=== PATIENT | female | born 1970 | race Caucasian/White ===

== ENCOUNTER 2018-07-19 09:15 | Emergency (ER) | payer SELFPAY ==
[~2018-07-19] VITALS: Ht 165.1 cm; Wt 63.5 kg
--- NOTE | 2018-07-19 09:39 | PHYS DOC ---
Past History Past Surgical History: Appendectomy, Hysterectomy, Tubal ligation Smoking: Cigarettes, Less than 1pk/day Alcohol Use: Occasionally Drug Use: None Adult General Chief Complaint Chief Complaint: FEVER HPI HPI Patient is a 48-year-old female who presents with cough, fever, body aches, headache, since 2 days ago. Not worst headache of life. No neck stiffness, no nausea or vomiting, and symptoms resolved with ibuprofen. No nausea or vomiting. Symptoms are moderate and a generalized achiness. No sick contacts. Cough is nonproductive. Decreased oral intake.[] Review of Systems Review of Systems Constitutional: See history of present illness[] Eyes: Denies change in visual acuity, redness, or eye pain [] HENT: Denies nasal congestion or sore throat [] Respiratory: Denies shortness of breath, see history of present illness [] Cardiovascular: No chest pain or palpitations[] GI: Denies abdominal pain, nausea, vomiting, bloody stools or diarrhea [] : Denies dysuria or hematuria [] Musculoskeletal: Denies back pain or joint pain [] Integument: Denies rash or skin lesions [] Neurologic: Denies focal weakness or sensory changes [] Endocrine: Denies polyuria or polydipsia [] All other systems were reviewed and found to be within normal limits, except as documented in this note. Physical Exam Physical Exam Constitutional: Well developed, well nourished, no acute distress, non-toxic appearance. [] HENT: Normocephalic, atraumatic, bilateral external ears normal, oropharynx moist, no oral exudates, nose normal. [] Eyes: PERRLA, EOMI, conjunctiva normal, no discharge. [] Neck: Normal range of motion, no tenderness, supple, no stridor. [] Cardiovascular:Heart rate regular rhythm, no murmur [] Lungs & Thorax: Bilateral breath sounds clear to auscultation [] Abdomen: Bowel sounds normal, soft, no tenderness, no masses, no pulsatile masses. [] Skin: Warm, dry, no erythema, no rash. [] Back: No tenderness, no CVA tenderness. [] Extremities: No tenderness, no cyanosis, no clubbing, ROM intact, no edema. [] Neurologic: Alert and oriented X 3, normal motor function, normal sensory function, no focal deficits noted. [] Psychologic: Affect normal, judgement normal, mood normal. [] EKG EKG [] Radiology/Procedures Radiology/Procedures Chest, PA and Lateral: Technique: PA and lateral views of the chest were obtained. History: Fever , dry cough. Comparison: None. Findings: The heart and pulmonary vasculature appear within normal limits. The lungs are clear. The pleural margins are clear. Impression: No acute chest process is seen. [] Course & Med Decision Making Course & Med Decision Making Pertinent Labs and Imaging studies reviewed. (See chart for details) ED course: Patient arrived, was placed in bed, and tolerated exam well. She was transported to and from [facility] without any complications. IV access was established and she was given a liter of IV fluids which improved her symptoms. After the return of the laboratory and imaging studies, these were discussed with the patient who voiced understanding. All questions were answered. Medical decision making: At the time of this dictation thyroid test is still pending however she does not appear to have a significant hypothyroid state/ myxedema coma. She is positive for the flu. No evidence of urinary tract infection, pneumonia, and otherwise nontoxic patient. Will start her on Tamiflu since her symptoms are approximately 48 hours old.[] Dragon Disclaimer Dragon Disclaimer This electronic medical record was generated, in whole or in part, using a voice recognition dictation system. Departure Departure: Impression: Primary Impression: Influenza A Disposition: 01 HOME, SELF-CARE Condition: IMPROVED Referrals: PCP,PRANAV (PCP) Patient Instructions: Influenza, Adult Additional Instructions: Follow-up with your regular doctor in 2 days. If you do not have regular doctor list of local clinics will be provided for you. Drink plenty of fluids. Return to the ER if unable to tolerate liquids or any other concerns. Scripts Acetaminophen (TYLENOL) 325 Mg Tablet 1-2 TAB PO QID for pain or fever, #60 TAB 0 Refills Prov: DIOGO LOPEZ DO 07/19/18 Ondansetron Hcl (ZOFRAN) 4 Mg Tablet 1 TAB PO Q6HRS for nausea or vomiting, #20 TAB Prov: DIOGO LOPEZ DO 07/19/18 Oseltamivir Phosphate (TAMIFLU) 75 Mg Capsule 1 CAP PO BID for Influenza A, #10 CAP Prov: DIOGO LOPEZ DO 07/19/18 DIOGO LOPEZ DO Jul 19, 2018 09:39
[2018-07-19] MEDS ORDERED: IV NORMAL SALINE 1,000ML 1,000 ML IV ONE (09:45)
[2018-07-19 09:58] LABS: BASO % 1 % (0-3); EOS % 0 % (0-3); HEMATOCRIT 39.7 % (36.0-47.0); HEMOGLOBIN 13.6 g/dL (12.0-15.5); LYMPH # 0.7 x10^3/uL (1.0-4.8); LYMPH % 23 % (24-48); MEAN CORPUSCULAR HEMOGLOBIN 32 pg (25-35); MEAN CORPUSCULAR HGB CONC 34 g/dL (31-37); MEAN CORPUSCULAR VOLUME 95 fL (79-100); MONO # 0.5 x10^3/uL (0.0-1.1); MONO % 15 % (0-9); NEUT # 1.9 x10^3uL (1.8-7.7); NEUT % 61 % (31-73); PLATELET COUNT 145 x10^3/uL (140-400); RED BLOOD COUNT 4.19 x10^6/uL (3.50-5.40); RED CELL DISTRIBUTION WIDTH 13.4 % (11.5-14.5)
[2018-07-19 10:06] LABS: BACTERIA,URINE FEW /HPF (0-FEW); BILIRUBIN,URINE NEG (NEG); CLARITY,URINE HAZY; COLOR,URINE YELLOW; GLUCOSE,URINE NEG (NEG); NITRITE,URINE NEG (NEG); SQUAMOUS EPITHELIAL CELL,UR MOD /LPF; UROBILINOGEN,URINE 0.2 mg/dL (0.2 mg/dL)
--- NOTE | 2018-07-19 10:09 | RAD ---
Chest, PA and Lateral: Technique: PA and lateral views of the chest were obtained. History: Fever , dry cough. Comparison: None. Findings: The heart and pulmonary vasculature appear within normal limits. The lungs are clear. The pleural margins are clear. Impression: No acute chest process is seen. Electronically signed by: Radu Hennessy MD (07/19/2018 10:06 AM) [id number]
[2018-07-19 10:13] LABS: ALBUMIN 3.5 g/dL (3.4-5.0); ALBUMIN/GLOBULIN RATIO 1.1 (1.0-1.7); CALCIUM 8.1 mg/dL (8.5-10.1); CREATININE 0.9 mg/dL (0.6-1.0); GFR 66.5; POTASSIUM 3.5 mmol/L (3.5-5.1); TOTAL BILIRUBIN 0.2 mg/dL (0.2-1.0); TOTAL PROTEIN 6.7 g/dL (6.4-8.2)
[2018-07-19 10:16] LABS: INFLUENZA A PATIENT POSITIVE (NEGATIVE); INFLUENZA B PATIENT NEGATIVE (NEGATIVE)
[2018-07-19] MEDS ORDERED: ACETAMINOPHEN 500 MG TABLET PO ONE ×2 (10:29→10:30)
[2018-07-19] MEDS ORDERED: ACET325T9 PO (10:31)
[2018-07-19] MEDS ORDERED: ONDA4TAB7 PO (10:31)
[2018-07-19] MEDS ORDERED: OSEL75CA PO (10:31)
[2018-07-19 10:48] VITALS: BP 110/76
== END 2018-07-19 10:50 | disposition home or self-care (01) ==
LOC: ER 09:15
DX: J10.1 Influenza due to other identified influenza virus with other respiratory manifestations (principal); F17.210 Nicotine dependence, cigarettes, uncomplicated
CPT/HCPCS: 36415; 71046; 80053; 81001; 83690; 83735; 84443; 85025; 87804; 99284-25; J7030

== ENCOUNTER 2018-10-07 18:44 | Emergency (ER) | payer SELFPAY ==
[~2018-10-07] VITALS: Ht 157.5 cm; Wt 47.6 kg
[~2018-10-07 18:44] MED LIST: ACET325T9 PO; ONDA4TAB7 PO; OSEL75CA PO
[2018-10-07 19:15] VITALS: BP 132/82
[2018-10-07] MEDS ORDERED: PRED-220 PO (20:11)
[2018-10-07] MEDS ORDERED: HYDR25TA PO (20:11)
--- NOTE | 2018-10-07 20:12 | PHYS DOC ---
Past History Past Medical History: Other Past Surgical History: Appendectomy, Hysterectomy, Tonsillectomy, Other Smoking: Cigarettes, Less than 1pk/day Alcohol Use: None Drug Use: None Adult General Chief Complaint Chief Complaint: ALLERGIC REACTION HPI HPI Patient is a 48 year old female who presents with complaint of rash. States that she is noted the rash over the past 2-3 days. States that it started on her right forearm. Since it has spread to her left forearm in her bilateral lower extremities. Is not sure what she came in contact with but does admit that one to 2 days prior she was pulling weeds out from under her deck. States that the rash is been very itchy. Has noted several pustules that of, through the rash. States that the rash appears linear in many places. Denies any throat swelling, shortness of breath, or fever. Review of Systems Review of Systems Constitutional: Denies fever or chills [] Eyes: Denies change in visual acuity, redness, or eye pain [] HENT: Denies nasal congestion or sore throat [] Respiratory: Denies cough or shortness of breath [] Cardiovascular: Denies chest pain or edema[] GI: Denies abdominal pain, nausea, vomiting, bloody stools or diarrhea [] : Denies dysuria or hematuria [] Musculoskeletal: Denies back pain or joint pain [] Integument: Rash[] Neurologic: Denies headache, focal weakness or sensory changes [] All other systems were reviewed and found to be within normal limits, except as documented in this note. Allergies Allergies Allergies Coded Allergies Type Severity Reaction Last Updated Verified No Known Drug Allergies 07/19/18 No Physical Exam Physical Exam Constitutional: Well developed, well nourished, no acute distress, non-toxic appearance. [] HENT: Normocephalic, atraumatic, bilateral external ears normal, oropharynx moist, no oral exudates, nose normal. [] Eyes: PERRLA, EOMI, conjunctiva normal, no discharge. [] Neck: Normal range of motion, no tenderness, supple, no stridor. [] Cardiovascular:Heart rate regular rhythm, no murmur [] Lungs & Thorax: Bilateral breath sounds clear to auscultation [] Abdomen: Bowel sounds normal, soft, no tenderness, no masses, no pulsatile masses. [] Skin: Warm, dry, pustular erythematous rash arranged in linear patterns over bilateral forearms and bilateral lower extremities, no rash visualized on trunk, neck, or face. [] Back: No tenderness, no CVA tenderness. [] Extremities: No tenderness, no cyanosis, no clubbing, ROM intact, no edema. [] Neurologic: Alert and oriented X 3, normal motor function, normal sensory function, no focal deficits noted. [] Current Patient Data Vital Signs Vital Signs Date Time Temp Pulse Resp B/P (MAP) Pulse Ox O2 Delivery O2 Flow Rate FiO2 10/07/18 19:15 98.7 89 18 97 Room Air Lab Results Not performed EKG EKG Not performed[] Radiology/Procedures Radiology/Procedures Not performed[] Course & Med Decision Making Course & Med Decision Making Pertinent Labs and Imaging studies reviewed. (See chart for details) Symptoms appear consistent with contact dermatitis. Given loading dose of oral prednisone in the emergency department. We'll continue on prednisone taper. P rescribe Atarax as needed for itching and advised to discontinue Benadryl this time. Recommended follow-up with primary doctor in 1 week if symptoms are not improving and return to emergency department for any worsening symptoms. Patient was understanding and in agreement with treatment plan. Dragon Disclaimer Dragon Disclaimer This electronic medical record was generated, in whole or in part, using a voice recognition dictation system. Departure Departure: Impression: Primary Impression: Contact dermatitis Disposition: 01 HOME, SELF-CARE Condition: STABLE Referrals: PCP,PRANAV (PCP) Patient Instructions: Contact Dermatitis Additional Instructions: Follow-up with your primary doctor in 1 week for reevaluation if symptoms are not improving. Return to the emergency department for any worsening symptoms. Scripts Hydroxyzine Hcl (HYDROXYZINE HCL) 25 Mg Tablet 1 TAB PO QID PRN for ANXIETY / AGITATION, #30 TAB Prov: CHEVY NOONAN MD 10/07/18 Prednisone (PREDNISONE) 10 Mg Tablet 10 MG PO UD for PREDNISONE TAPER, #39 TAB 0 Refills Take 3 tablets by mouth twice a day for 3 days, then take 2 tablets by mouth twice a day for 3 days, then take 1 tablet by mouth twice a day for 3 days, then take 1 tablet by mouth daily x 3 days, then stop. Prov: CHEVY NOONAN MD 10/07/18 Problem Qualifiers Primary Impression: Contact dermatitis Contact dermatitis type: unspecified Contact dermatitis trigger: unspecified trigger Qualified Codes: L25.9 - Unspecified contact dermatitis, unspecified cause CHEVY NOONAN MD Oct 07, 2018 20:12
[2018-10-07] MEDS ORDERED: predniSONE 10 MG TABLET PO ONE (20:15)
[2018-10-07] MEDS ORDERED: predniSONE 10 MG TABLET ONE (20:17)
== END 2018-10-07 20:24 | disposition home or self-care (01) ==
LOC: ER 18:44
DX: L25.9 Unspecified contact dermatitis, unspecified cause (principal); F17.210 Nicotine dependence, cigarettes, uncomplicated
CPT/HCPCS: 99283; J7512

== ENCOUNTER 2018-10-11 17:06 | Emergency (ER) | payer SELFPAY ==
[~2018-10-11] VITALS: Ht 157.5 cm; Wt 51.8 kg
[~2018-10-11 17:06] MED LIST changes: +DEXAMETHASONE SOD PHOS 10 MG/ML VIAL IM ONE; +HYDR25TA PO; +PRED-220 PO
[2018-10-11] MEDS ORDERED: DEXAMETHASONE SOD PHOS 10 MG/ML VIAL ONE (18:45)
--- NOTE | 2018-10-11 18:56 | ED.ADGEN ---
Past History Past Medical History: Hyperthyroid, Other Past Surgical History: Appendectomy, Hysterectomy, Tonsillectomy, Other Smoking: Cigarettes, Less than 1pk/day Alcohol Use: None Drug Use: None Adult General Chief Complaint Chief Complaint Poison sadiq exposure [facility] HPI Patient is a 48-year-old female evaluated and treated in the emergency department 4 days ago for plant dermatitis after poison IV exposure while mowing her lawn. Patient was prescribed Medrol Dosepak and hydroxyzine which she has taken. However, patient does report increasing anxiety while taking prednisone and T wave itching and scratching. The rash has now spread to her medial thighs, arms, and upper chest region. Patient does not have shortness of breath or ocular involvement. Patient has also been treating her with peroxide. No fevers chills, shortness of breath or sweats. No other acute symptoms or complaints.[] Review of Systems Review of Systems Constitutional: Denies fever or chills [] Eyes: Denies change in visual acuity, redness, or eye pain [] HENT: Denies nasal congestion or sore throat [] Respiratory: Denies cough or shortness of breath [] Cardiovascular: No additional information not addressed in HPI [] GI: Denies abdominal pain, nausea, vomiting, bloody stools or diarrhea [] : Denies dysuria or hematuria [] Musculoskeletal: Denies back pain or joint pain [] Integument: Denies rash or skin lesions [] Neurologic: Denies headache, focal weakness or sensory changes [] Endocrine: Denies polyuria or polydipsia [] All other systems were reviewed and found to be within normal limits, except as documented in this note. Current Medications Current Medications Current Medications Medications (Trade) Dose Ordered Sig/Vickie Start Time Stop Time Status Last Admin Dose Admin Dexamethasone Sodium Phosphate (Decadron) 10 mg STK-MED ONCE 10/11/18 18:45 10/11/18 18:46 DC Allergies Allergies Allergies Coded Allergies Type Severity Reaction Last Updated Verified No Known Drug Allergies 07/19/18 No Physical Exam Physical Exam Constitutional: Well developed, well nourished, anxious. [] HENT: Normocephalic, atraumatic, bilateral external ears normal, oropharynx moist, no oral exudates, nose normal. [] Eyes: PERRLA, EOMI, conjunctiva normal, no discharge. [] Neck: Normal range of motion Lungs & Thorax: Bilateral breath sounds clear to auscultation []no pulsatile masses. [] Skin: Diffuse macular papular rash over her extensor and flexor surfaces of both upper extremities, confluent macular papular rash and inner thighs of both lower extremities consistent with plant dermatitis. No facial involvement[] Back: No tenderness, no CVA tenderness. [] Extremities: No tenderness, no cyanosis, no clubbing, ROM intact, no edema. [] Neurologic: Alert and oriented X 3, normal motor function, normal sensory function, no focal deficits noted. [] Psychologic: Affect, anxious Current Patient Data Vital Signs Vital Signs Date Time Temp Pulse Resp B/P (MAP) Pulse Ox O2 Delivery O2 Flow Rate FiO2 10/11/18 19:00 82 22 140/78 (98) 97 Room Air 10/11/18 17:25 98.1 EKG EKG [] Radiology/Procedures Radiology/Procedures [] Course & Med Decision Making Course & Med Decision Making Pertinent Labs and Imaging studies reviewed. (See chart for details) [Exam consistent with plant dermatitis. I am steroids given. Recommend continuing Medrol Dosepak and an increasing hydroxyzine with PCP follow-up. Return precautions reviewed.] Final Impression Final Impression [1. Plant dermatitis] Denice Disclaimer Denice Disclaimer This electronic medical record was generated, in whole or in part, using a voice recognition dictation system. TAYLOR DUEÑAS DO Oct 11, 2018 18:56
[2018-10-11 19:00] VITALS: BP 140/78
== END 2018-10-11 19:00 | disposition home or self-care (01) ==
LOC: ER 17:06
DX: L25.5 Unspecified contact dermatitis due to plants, except food (principal); E05.90 Thyrotoxicosis, unspecified without thyrotoxic crisis or storm; F17.210 Nicotine dependence, cigarettes, uncomplicated
CPT/HCPCS: 96372; 99283; J1100

== ENCOUNTER 2019-12-31 08:38 | Emergency (ER) | payer SELFPAY ==
[~2019-12-31] VITALS: Ht 157.5 cm; Wt 51.8 kg
[2019-12-31 08:38] VITALS: BP 137/80
[~2019-12-31 08:38] MED LIST changes: -DEXAMETHASONE SOD PHOS 10 MG/ML VIAL IM ONE
--- NOTE | 2019-12-31 08:55 | PHYS DOC ---
Past History Past Medical History: Hyperthyroid, Other Past Surgical History: Appendectomy, Hysterectomy, Tonsillectomy, Other Smoking: Cigarettes, Less than 1pk/day Alcohol Use: None Drug Use: None Adult General Chief Complaint Chief Complaint: COVID SYMPTOMS [facility] HPI Patient is a 49-year-old female who presents for COVID symptoms. Onset was 4 days ago. Nothing known makes better or worse. Patient reports initially feeling weak and fatigued with development of generalized headache, rhinorrhea, postnasal drip, nausea, x2 episodes of diarrhea and musculoskeletal chest pain from a dry nonproductive cough. Patient has been taking Advil intermittently without significant relief in symptoms. Denies any fever, syncope, immunocompromise state, substernal chest pain, recent concerning food ingestions, changes in home medication and/or recent antibiotic use. She admits high risk travel to [place] and [place] in the last 3 weeks. She helped friends move houses 1 week ago who were known COVID positive patients, she was not wearing a mask during the move. She is otherwise healthy besides Graves' disease for which she has been taking levothyroxine daily, she has not had her levels checked in greater than 3 years. She is relatively new to the area and does not have a PCP established Review of Systems Review of Systems Fourteen body systems of review of systems have been reviewed. See HPI for pertinent positives and negative responses, other alanis all other systems are negative, non-pertinent or non-contributory Allergies Allergies Allergies Coded Allergies Type Severity Reaction Last Updated Verified No Known Drug Allergies 07/19/18 No Physical Exam Physical Exam Constitutional: Well developed, well nourished, no acute distress, non-toxic appearance. HENT: Normocephalic, atraumatic, bilateral external ears normal, bilateral middle ears including tympanic membranes without any findings of acute disease, oropharynx moist, no oral exudates, moderate postnasal drip present, moderately engorged nasal turbinates with clear rhinorrhea present, external nose normal. Eyes: PERRLA, EOMI, conjunctiva normal, no discharge. Neck: Normal range of motion, no tenderness, supple, no stridor. Cardiovascular: Heart rate regular, sinus rhythm, no murmurs rubs or gallops. Reproducible chest pain with palpation of chest wall intercostal muscles Lungs & Thorax: Bilateral breath sounds clear to auscultation Abdomen: Bowel sounds normal, soft, no tenderness, no guarding, no rebound, no masses, no pulsatile masses. Nonsurgical abdomen, no peritoneal signs Skin: Warm, dry, no erythema, no rash. Back: No tenderness, no CVA tenderness. Extremities: No tenderness, no cyanosis, no clubbing, ROM intact, no edema. Neurologic: Alert and oriented X 3, grossly normal motor & sensory function, no focal deficits noted. Psychologic: Anxious mood, tearful Current Patient Data Vital Signs Vital Signs Date Time Temp Pulse Resp B/P (MAP) Pulse Ox O2 Delivery O2 Flow Rate FiO2 12/31/19 08:38 98.6 80 16 137/80 (99) 99 EKG EKG EKG ordered and interpreted by myself at 0852 hrs. as sinus rhythm at 67 bpm, unremarkable intervals, no axis deviation, no acute ischemic findings, no STEMI Radiology/Procedures Radiology/Procedures PROCEDURE: PORTABLE CHEST 1V Single view chest dated 12/31/2019. Comparison made to 07/19/2018. CLINICAL INDICATION: Chest pain. FINDINGS: Single upright portable exam performed. Heart and mediastinal contours are stable. Lungs are clear. No consolidation or pleural effusion. No pneumothorax. IMPRESSION: No acute radiographic abnormality. Electronically signed by: Rudolph Marroquin MD (12/31/2019 9:55 AM) [id number] Course & Med Decision Making Course & Med Decision Making Patient seen on immediate ER arrival ABCs non-concerning Comprehensive history and physical exam performed, subsequent diagnostic work-up ordered IV access obtained, 1 L normal saline, 4 mg IV Zofran, 162 mg aspirin, and 1 g Tylenol administered with mild improvement in symptoms Discussed grossly benign work-up without any abnormal red flag signs or symptoms prompting need for further diagnostic work-up and/or admission I discussed most likely diagnosis of COVID-19 versus viral syndrome that is likely to be self-limiting in nature. Supportive care advised and educated on extensively I did discuss this might be an acute presentation of more concerning pathology and disclosed other possible diagnoses but at this time, likelihood of this is very low in an otherwise well-appearing patient tolerating p.o. intake without concerning vitals or physical exam findings Patient did not does not have PCP, I gave her resources on physicians in local area who are accepting new patients. I advised patient to call and establish care in upcoming 7 to 14 days after acute phase of illness has resolved I educated patient that she was now a person under investigation, the meaning of this, the meaning of self quarantining, and educated extensively on hygiene and self quarantining practices Strict return precautions were discussed with good understanding by patient, all questions and concerns addressed prior to ER departure in stable condition Denice Disclaimer Denice Disclaimer This electronic medical record was generated, in whole or in part, using a voice recognition dictation system. The HEART Score for CP Pts HEART Score for Chest Pain: HEART Score for Chest Pain Response (Comments) Value History Slighlty/Non-Suspicious 0 ECG Normal 0 Age >45 - < 65 1 Risk Factors No Risk Factors 0 Troponin < Normal Limit 0 Total 1 Risk Factors: Risk Factors: DM, Current or recent (<one month) smoker, HTN, HLP, family history of CAD, obesity. Risk Scores: Score 0 - 3: 2.5% MACE over next 6 weeks - Discharge Home Score 4 - 6: 20.3% MACE over next 6 weeks - Admit for Clinical Observation Score 7 - 10: 72.7% MACE over next 6 weeks - Early Invasive Strategies Departure Departure: Impression: Primary Impression: Person under investigation for COVID-19 Disposition: 01 HOME/RESIDENCE PRIOR TO ADM Condition: STABLE Referrals: PCP,NO (PCP) Additional Instructions: You were evaluated in the Emergency Department today for generalized viral symptoms. Your evaluation suggests a viral infection such as Coronavirus. It is important that you continue to self isolate and practice good hygiene at home. Please follow up with your primary care physician as discussed. Return to the Emergency Department if you experience worsening cough, fever, shortness of breath, recurrent vomiting, lethargy, or any other concerning symptoms. Thank you for choosing us for your care. Home Care Instructions for Patients with Mild Respiratory Infection Most people with respiratory infections like colds, the flu, and Coronavirus Disease (COVID-19) will have mild illness and can get better with appropriate home care and without the need to see a provider. People who are elderly, , or have a weak immune system, or other medical problem are at higher risk of more serious illness or complications. It is recommended that they carefully monitor their symptoms closely and seek medical care early if their symptoms get worse. Treatment There is no specific treatment for most viruses including those that that cause the common cold and those that cause COVID-19. Sometimes there is treatment for the viruses that cause influenza if given early. Antibiotics treat infections caused by bacteria, but they do not work against viruses.Most people recover on their own from these viruses, including COVID-19. Here are steps that you can take to help you get better: Rest Drink plenty of fluids Take lykq-kgr-gtzsddu cold and flu medications to reduce fever and pain. Follow the instructions on the package, unless your doctor gave you instructions. Note that these medicines do not ``cure the illness and therefore do not stop you from spreading germs. Children should not be given medication that contains aspirin (acetylsalicylic acid) because it can cause a rare but serious illness called Rodney syndrome. Medicines without aspirin include acetaminophen (Tylenol) and ibuprofen (Advil, Motrin). Children younger than age 2 should not be given any iwrh-trq-qxwttco cold medications without first speaking with a doctor.Seeking Medical Care You should seek medical care if you are not getting better within a week, or if your symptoms get worse. If you are elderly, , have a weak immune system, or other medical problems, call your doctor right away. It is best to call ahead of time to discuss your symptoms, if possible. This may allow you to receive the advice you need by phone. By avoiding a visit to a healthcare facility, you protect yourself from getting a new infection and protect others from catching an infection from you. If you do visit a healthcare facility, put on a mask to protect other patients and staff. It is recommended that you seek medical care for serious symptoms, such as: People with potentially life-threatening symptoms should call 911. If possible, put on a facemask before emergency medical services arrive.PROTECTING OTHERS Follow the steps below to help prevent the disease from spreading to people in your home and community.Stay home when you are sick Stay home - do not go to work, school, or public areas. Stay home for at least 24 hours after your symptoms have gone away without the use of fever-reducing medicines. If you must leave home while you are sick, try to avoid using public transportation, ride-shares, and taxis. Wear a mask if possible. Separate yourself from other people and animals in your home Stay in a specific room and away from other people in your home as much as possible. Use a separate bathroom, if available. Try to stay at least 6 feet from others. Do not handle pets or other animals while you are sick. Cover your coughs and sneezes Cover your mouth and nose with a tissue when you cough or sneeze. Throw used tissues in a lined trash can; immediately wash your hands. Avoid sharing personal household items Do not share dishes, drinking glasses, cups, eating utensils, towels, or bedding with other people or pets in your home. Wash them thoroughly with soap and water after use. Clean your hands often Wash your hands often with soap and water for at least 20 seconds. If soap and water are not available, clean your hands with an alcohol-based hand baker bread that contains at least 60% alcohol, covering all surfaces of your hands and rubbing them together until they feel dry. Use soap and water if your hands are visibly dirty. Clean all ``high-touch surfaces every day High touch surfaces include counters, tabletops, doorknobs, bathroom fixtures, toilets, phones, keyboards, tablets, and bedside tables. Also, clean any surfaces that may have body fluids on them. Use a household cleaning spray or wipe, according to the product label instructions. COVID-19 (Novel Coronavirus) FAQs for Inquiring Patients What do you do if you are worried that you have been exposed to COVID-19 but are without any symptoms? If you develop symptoms that may indicate an infection, contact your physician. These include fever, cough, and shortness of breath. Testing is not available for asymptomatic individuals, regardless of travel history. To reduce the chance of getting sick use general infection prevention measures such as hand washing, covering your mouth and nose when you cough or sneeze and discarding any tissues carefully, and staying home when you are sick.Can exceptions be made for patients who are really worried and want to be tested? Presently testing is only available through the [facility] Department of Public Health and Centers for Disease Control and Prevention. Only patients who meet the updated COVID-19 PUI definition may be tested. We do not control or set the PUI definition or evaluation criteria. We are unable to provide testing to patients who do not meet the strict criteria. Should patients cancel or postpone an upcoming trip? The decision about travel is personal and should be made in the context of a persons underlying health conditions, reason for travel and necessity of travel. Travel insurance generally does not cover cancellations due to concerns of infectious disease outbreaks. The Center for Disease Control has a section on travel notices. Situations are changing frequently and you should monitor the site for updates. Should situations change rapidly in a foreign country while they are traveling, you could be subject to quarantine or restrictions upon return to the [place]. It is best to have a plan on how to return urgently if needed during a trip abroad. Because of how air circulates and is filtered on airplanes, most viruses do not spread easily on airplanes. CDC does not recommend use of facemasks during air travel.What other general precautions are advised? Patients should be instructed to: Avoid close contact with people who are sick. Avoid touching your eyes, nose and mouth. Stay home from work or school when they are sick. If you have a fever, you should remain home until 24 hours after fever resolves. Clean and disinfect frequently touched objects and surfaces using a regular household cleaning spray or wipe. Sneeze/cough into their elbow, not your hand. Practice frequent hand hygiene with soap and water (at least 20 seconds) or alcohol-based hand rub. Consider avoiding crowded places or mass gatherings, especially if you are immunocompromised or have chronic lung disease. There is no evidence to support transmission of COVID-19 from goods imported from [place]. Are there any special precautions that are recommended if I am ? There is not yet any information available about the susceptibility of women to COVID-19. As a general rule, women may be more susceptible to viral respiratory infections and at risk for more severe illness. The CDC guidance for COVID-19 and has answers to questions about transmission during delivery, as well as other situations. Should food, water, or medications be stockpiled? Should people telecommute? The CDC has excellent information on this. Please visit the CDCs guidance for getting your household ready for COVID-19. What should I do if I start feeling sick at work? And what should the workplace do for anyone exposed? Anyone who is sick with a fever and cough should stay home from work until at least 24 hours after resolution of fever, regardless of concerns for COVID-19. It is still influenza (flu) season and influenza remains far more common. Justification of Admission: Justification of Admission: Justification of Admission Dx: N/A ELLIE BHATT DO Dec 31, 2019 08:54
[2019-12-31] MEDS ORDERED: ONDANSETRON PF 4 MG/2 ML VIAL. ONE (09:01)
[2019-12-31] MEDS ORDERED: ACETAMINOPHEN 500 MG TABLET PO ONE (09:15)
[2019-12-31] MEDS ORDERED: ASPIRIN CHEWABLE 81 MG TABLET. PO ONE (09:15)
[2019-12-31] MEDS ORDERED: IV NORMAL SALINE 1,000ML 1,000 ML IV ONE (09:15)
[2019-12-31 09:29] LABS: BASO # 0.1 x10^3/uL (0.0-0.2); BASO % 1 % (0-3); CREATININE 0.8 mg/dL (0.6-1.0); EOS # 0.1 x10^3/uL (0.0-0.7); EOS % 3 % (0-3); GFR 75.9; HEMATOCRIT 42.7 % (36.0-47.0); HEMOGLOBIN 14.5 g/dL (12.0-15.5); LYMPH # 1.7 x10^3/uL (1.0-4.8); LYMPH % 35 % (24-48); MEAN CORPUSCULAR HEMOGLOBIN 32 pg (25-35); MEAN CORPUSCULAR HGB CONC 34 g/dL (31-37); MEAN CORPUSCULAR VOLUME 95 fL (79-100); MONO # 0.4 x10^3/uL (0.0-1.1); MONO % 8 % (0-9); NEUT # 2.6 x10^3uL (1.8-7.7); NEUT % 53 % (31-73); PLATELET COUNT 221 x10^3/uL (140-400); POTASSIUM 3.4 mmol/L (3.5-5.1); RED BLOOD COUNT 4.49 x10^6/uL (3.50-5.40); RED CELL DISTRIBUTION WIDTH 13.2 % (11.5-14.5)
[2019-12-31] MEDS ORDERED: ONDANSETRON PF 4 MG/2 ML VIAL. IVP ONE (09:30)
[2019-12-31 09:35] LABS: ALBUMIN 3.6 g/dL (3.4-5.0); ALBUMIN/GLOBULIN RATIO 1.1 (1.0-1.7); TOTAL BILIRUBIN 0.3 mg/dL (0.2-1.0); TOTAL PROTEIN 6.9 g/dL (6.4-8.2)
--- NOTE | 2019-12-31 09:57 | RAD ---
Single view chest dated 12/31/2019. Comparison made to 07/19/2018. CLINICAL INDICATION: Chest pain. FINDINGS: Single upright portable exam performed. Heart and mediastinal contours are stable. Lungs are clear. No consolidation or pleural effusion. No pneumothorax. IMPRESSION: No acute radiographic abnormality. Electronically signed by: Rudolph Marroquin MD (12/31/2019 9:55 AM) [id number]
--- NOTE | 2019-12-31 13:12 | EKG ---
[address] [address] Test Date: 2019-12-31 Test Time: 08:46:20 Pat Name: PALMIRA RIVERA Department: Room: Gender: F [employer]: AGUSTIN : 1970 Requested By: ELLIE BHATT Order Number: [id number] Reading MD: Haider Davis MD Measurements Intervals [place] Rate: 67 P: 67 NE: 130 QRS: 78 QRSD: 84 T: 61 QT: 392 QTc: 417 Interpretive Statements SINUS RHYTHM NORMAL ECG RI6.02 No previous ECG available for comparison Electronically Signed On 01-02-2020 13:56:31 CDT by Haider Davis MD
--- NOTE | 2020-01-02 13:00 | NUR ---
IP: attempt to notify patient of COVID result, phone number not working. Letter sent.
== END 2019-12-31 10:35 | disposition home or self-care (01) ==
LOC: ER 08:38
DX: R53.1 Weakness (principal); R53.83 Other fatigue; R51 Headache; R09.82 Postnasal drip; R19.7 Diarrhea, unspecified; E05.90 Thyrotoxicosis, unspecified without thyrotoxic crisis or storm; F17.210 Nicotine dependence, cigarettes, uncomplicated; Z20.828 Contact with and (suspected) exposure to other viral communicable diseases; Z90.49 Acquired absence of other specified parts of digestive tract; Z90.710 Acquired absence of both cervix and uterus
CPT/HCPCS: 36415; 71045; 80053; 83690; 84443; 84484; 85025; 93005; 96361; 96374; 99285; J2405; J7030; U0003